=== PATIENT | male | born 1945 | race Caucasian/White ===

== ENCOUNTER 2016-12-19 09:04 | Outpatient (CLI) | payer MEDICARE, OTHER ==
--- NOTE | 2016-12-19 11:20 | CT ---
CT ABDOMEN AND PELVIS WITH AND WITHOUT IV CONTRAST: Date: 12/19/16 HISTORY: Hematuria. FINDINGS: There are mild dependent changes in the lung bases. The liver, spleen, and adrenal glands are normal . There are a few calcifications in the pancreas, indicative of chronic pancreatitis. No calcified g allstones are seen. No free air, free fluid, or lymphadenopathy seen in the abdomen or pelvis. No calculi seen in the kidneys, ureters, or the urinary bladder. No hydroureteronephrosis is noted o n either side. Postcontrast images demonstrate a tiny cyst in the left kidney. No enhancing renal ma ss is identified. There is normal contrast excretion into the ureters and the urinary bladder. There is mild enlargement of the prostate. There are vascular calcifications without evidence of aneurysmal dilatation of the abdominal aorta. There are degenerative changes in the spine. 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 There is feca l material in the colon. Small bilateral fat-containing inguinal hernia. IMPRESSION: 1. No CT evidence of urinary tract calculi or obstruction. 2. Probable tiny left renal cyst. POS: [facility]
[2016-12-19] MEDS ORDERED: Iopamidol 370 76% 100 ML VIAL ONE (13:25)
== END 2016-12-19 09:05 | disposition home or self-care (01) ==
LOC: CT 09:04
PROVIDERS: ATTEND Urology
DX: R31.29 Other microscopic hematuria (principal)
CPT/HCPCS: 74178

== ENCOUNTER 2020-05-30 11:39 | Outpatient (CLI) | payer MEDICARE, OTHER ==
[2020-05-30 14:02] LABS: Estimated GFR-MDRD - POC Greater than 90
== END 2020-05-30 11:40 | disposition home or self-care (01) ==
LOC: PET 11:39 → MRI 11:40
PROVIDERS: ATTEND Psychiatry & Neurology Neurology
DX: F03.90 Unspecified dementia, unspecified severity, without behavioral disturbance, psychotic disturbance, mood disturbance, and anxiety (principal); I67.89 Other cerebrovascular disease
CPT/HCPCS: 70553; 78803; 82565; A9552